=== PATIENT | male | born 1965 | race Caucasian/White ===

== ENCOUNTER 2017-09-27 14:19 | Emergency (ER) | payer SELFPAY ==
[2017-09-27 14:40] VITALS: BP 174/83
[2017-09-27] MEDS ORDERED: OXYCODONE-ACETAMINOPHEN 5-325 MG TABLET PO ONE (15:14)
--- NOTE | 2017-09-27 16:37 | ER Document Report ---
ED General - General Chief Complaint: Problem with Urinary Catheter Stated Complaint: CATHETER PROBLEMS/NOT DRAINING Time Seen by Provider: 09/27/17 15:13 Mode of Arrival: Ambulatory Information source: Patient Notes: Patient presents with severe abdominal pain. He states he had a Romero catheter put in yesterday secondary to bladder cancer. He states today the catheter will not drain and he is having severe pain. It is worse with movement and better with rest. It is constant. The pain radiates into his genitalia. It is sharp. TRAVEL OUTSIDE OF THE [place] IN LAST 30 DAYS: No - Related Data Allergies/Adverse Reactions: No Known Allergies Allergy (Verified 11/05/13 09:27) Past Medical History - General Information source: Patient - Social History Smoking Status: Current Some Day Smoker Chew tobacco use (# tins/day): No Frequency of alcohol use: None Drug Abuse: None Family History: Reviewed & Not Pertinent Patient has suicidal ideation: No Patient has homicidal ideation: No - Past Medical History Cardiac Medical History: Denies: Hx Coronary Artery Disease, Hx Heart Attack, Hx Hypertension Pulmonary Medical History: Denies: Hx Asthma, Hx Bronchitis, Hx COPD, Hx Pneumonia Neurological Medical History: Denies: Hx Cerebrovascular Accident Renal/ Medical History: Denies: Hx Peritoneal Dialysis Musculoskeltal Medical History: Denies Hx Arthritis - Immunizations Hx Diphtheria, Pertussis, Tetanus Vaccination: No Review of Systems - Review of Systems Constitutional: denies: Chills, Fever Cardiovascular: denies: Chest pain, Palpitations Respiratory: denies: Cough, Short of breath Gastrointestinal: Abdominal pain, Nausea Physical Exam - Vital signs Vitals: Temp Pulse Resp BP Pulse Ox 98.3 F 100 20 174/83 H 97 09/27/17 14:36 09/27/17 14:36 09/27/17 14:36 09/27/17 14:36 09/27/17 14:36 Interpretation: Hypertensive - General General appearance: Appears well, Alert - HEENT Head: Normocephalic, Atraumatic Eyes: Normal Pupils: PERRL - Respiratory Respiratory status: No respiratory distress Chest status: Nontender Breath sounds: Normal Chest palpation: Normal - Cardiovascular Rhythm: Regular Heart sounds: Normal auscultation Murmur: No - Abdominal Inspection: Normal Distension: No distension Bowel sounds: Normal Tenderness: Nontender Organomegaly: No organomegaly - Genitourinary Inspection: Blood at meatus, Other - There is a Romero catheter in place with some blood at the meatus. - Back Back: Normal, Nontender - Extremities General upper extremity: Normal inspection, Nontender, Normal color, Normal ROM , Normal temperature General lower extremity: Normal inspection, Nontender, Normal color, Normal ROM , Normal temperature, Normal weight bearing. No: Aj's sign - Neurological Neuro grossly intact: Yes Cognition: Normal Orientation: AAOx4 [place] Coma Scale Eye Opening: Spontaneous [place] Coma Scale Verbal: Oriented [place] Coma Scale Motor: Obeys Commands [place] Coma Scale Total: 15 Speech: Normal Motor strength normal: LUE, RUE, LLE, RLE Sensory: Normal - Psychological Associated symptoms: Normal affect, Normal mood - Skin Skin Temperature: Warm Skin Moisture: Dry Skin Color: Normal Course - Re-evaluation Re-evalutation: 09/27/17 16:35 Patient had his Romero catheter changed approximately 1000 cc of blood-tinged fluid have drained. He states he feels significantly better. - Vital Signs Vital signs: Temp Pulse Resp BP Pulse Ox 98.3 F 100 20 174/83 H 97 09/27/17 14:36 09/27/17 14:36 09/27/17 14:36 09/27/17 14:36 09/27/17 14:36 Discharge - Discharge Clinical Impression: Obstruction of indwelling urinary catheter Qualifiers: Encounter type: initial encounter Qualified Code(s): T83.091A - Other mechanical complication of indwelling urethral catheter, initial encounter Condition: Stable Disposition: HOME, SELF-CARE Additional Instructions: Your blood pressure is elevated. Please have this rechecked within 1 week by your doctor. Please call your urologist as soon as possible to discuss management of your Romero catheter. Forms: Elevated Blood Pressure
== END 2017-09-27 17:18 | disposition home or self-care (01) ==
LOC: ER 14:19
DX: T83.098A Other mechanical complication of other urinary catheter, initial encounter (principal); Y84.6 Urinary catheterization as the cause of abnormal reaction of the patient, or of later complication, without mention of misadventure at the time of the procedure; C67.9 Malignant neoplasm of bladder, unspecified; F17.200 Nicotine dependence, unspecified, uncomplicated; R10.9 Unspecified abdominal pain; R11.0 Nausea
CPT/HCPCS: 99283

== ENCOUNTER 2017-09-28 19:57 | Emergency (ER) | payer SELFPAY ==
--- NOTE | 2017-09-28 20:34 | ER Document Report ---
ED Medical Screen (RME) - General Chief Complaint: Problem with Urinary Catheter Stated Complaint: CATHETER PROBLEMS Time Seen by Provider: 09/28/17 20:20 Mode of Arrival: Wheelchair Information source: Patient, Relative TRAVEL OUTSIDE OF THE [place] IN LAST 30 DAYS: No - HPI Patient complains to provider of: YORK CATHETER NOT DRAINING, LEAKING Onset: This morning Onset/Duration: Sudden Context: Patient apparently had an indwelling [place] catheter placed by urologist 2 days ago. This catheter ceased working yesterday and patient came to this emergency department last night and catheter was changed and irrigated. Function improved until midday today when the new catheter ceased to drain properly. Again, patient complains of urinary leakage around catheter and increased pain in the bladder area. Quality of pain: Pressure Severity: Moderate Associated Symptoms: Nausea. denies: Vomiting Exacerbated by: Movement Relieved by: Denies Similar symptoms previously: Yes - SEE ABOVE Recently seen / treated by doctor: Yes - SEE ABOVE - Related Data Allergies/Adverse Reactions: No Known Allergies Allergy (Verified 09/28/17 20:04) Past Medical History - General Information source: Patient, Relative - Past Medical History Cardiac Medical History: Denies: Hx Coronary Artery Disease, Hx Heart Attack, Hx Hypertension Pulmonary Medical History: Denies: Hx Asthma, Hx Bronchitis, Hx COPD, Hx Pneumonia Neurological Medical History: Denies: Hx Cerebrovascular Accident Renal/ Medical History: Reports: Other - BLADDER Ca. Denies: Hx Peritoneal Dialysis Malignancy Medical History: Reports Other - BLADDER Ca GI Medical History: Reports: None Musculoskeltal Medical History: Denies Hx Arthritis - Immunizations Hx Diphtheria, Pertussis, Tetanus Vaccination: No Review of Systems - Review of Systems Constitutional: denies: Chills, Fever Genitourinary: See HPI Physical Exam - Vital signs Vitals: Temp Pulse Resp BP Pulse Ox 98.5 F 110 H 20 177/99 H 94 09/28/17 20:13 09/28/17 20:13 09/28/17 20:13 09/28/17 20:13 09/28/17 20:13 Interpretation: Hypertensive, Tachycardic. No: Tachypneic, Febrile - General General appearance: Alert, Anxious In distress: Mild - HEENT Head: Normocephalic Eyes: Normal Conjunctiva: Normal - Abdominal Inspection: Normal - Genitourinary Notes: YORK CATH W/ MINIMAL URINE, CLEAR BUT BLOOD-TINGED Course - Vital Signs Vital signs: Temp Pulse Resp BP Pulse Ox 98.5 F 110 H 20 177/99 H 94 09/28/17 20:13 09/28/17 20:13 09/28/17 20:13 09/28/17 20:13 09/28/17 20:13
[2017-09-28] MEDS ORDERED: HYDROMORPHONE HCL INJ/PF 2 MG/ML AMPULE IV ONE ×2 (20:36→22:08)
[2017-09-28] MEDS ORDERED: ONDANSETRON HCL INJ/PF 4 MG/2 ML SDV IV ONE (20:36)
[2017-09-28 21:14] LABS: APPEARANCE,URINE CLOUDY; BILIRUBIN,URINE NEGATIVE (NEGATIVE); GLUCOSE, URINE NEGATIVE (NEGATIVE); KETONES,URINE NEGATIVE (NEGATIVE); LEUKOCYTE ESTERASE,URINE MODERATE (NEGATIVE); NITRITE,URINE NEGATIVE (NEGATIVE); PROTEIN,URINE >=500 mg/dL (NEGATIVE); URINE SPECIFIC GRAVITY 1.011; UROBILINOGEN,URINE NEGATIVE mg/dL (<2.0)
--- NOTE | 2017-09-28 22:42 | ER Document Report ---
ED General - General Chief Complaint: Problem with Urinary Catheter Stated Complaint: CATHETER PROBLEMS Time Seen by Provider: 09/28/17 20:20 Mode of Arrival: Wheelchair Information source: Patient Notes: 52 yr old amle hx of carcinoma of the bladder presents with complaints of difficulty urinating with the gee catheter in place. Pt denies any fevers or chills. pt notes that gee was placed 2 days ago at [facility], yesterday had it removed and replaced and today he had large clots and difficulty urinating. pt denies any fevers or chills. TRAVEL OUTSIDE OF THE [place] IN LAST 30 DAYS: No - HPI Onset: Other Onset/Duration: Persistent Quality of pain: Cramping Severity: Mild Pain Level: 1 Associated symptoms: Other Exacerbated by: Denies Relieved by: Denies Similar symptoms previously: No Recently seen / treated by doctor: No - Related Data Allergies/Adverse Reactions: No Known Allergies Allergy (Verified 09/28/17 20:04) Past Medical History - General Information source: Patient, Relative - Social History Smoking Status: Never Smoker Cigarette use (# per day): No Chew tobacco use (# tins/day): No Smoking Education Provided: No Frequency of alcohol use: None Drug Abuse: None Family History: Reviewed & Not Pertinent Patient has suicidal ideation: No Patient has homicidal ideation: No - Past Medical History Cardiac Medical History: Denies: Hx Coronary Artery Disease, Hx Heart Attack, Hx Hypertension Pulmonary Medical History: Denies: Hx Asthma, Hx Bronchitis, Hx COPD, Hx Pneumonia Neurological Medical History: Denies: Hx Cerebrovascular Accident Renal/ Medical History: Reports: Other - BLADDER Ca. Denies: Hx Peritoneal Dialysis Malignancy Medical History: Reports Other - BLADDER Ca GI Medical History: Reports: None Musculoskeltal Medical History: Denies Hx Arthritis - Immunizations Hx Diphtheria, Pertussis, Tetanus Vaccination: No Review of Systems - Review of Systems Notes: REVIEW OF SYSTEMS: CONSTITUTIONAL : Denies fever, chills, or sweats. Denies recent illness. EENT: Denies eye, ear, throat, or mouth pain or symptoms. Denies nasal or sinus congestion or discharge. Denies throat, tongue, or mouth swelling or difficulty swallowing. CARDIOVASCULAR: Denies chest pain. Denies palpitations or racing or irregular heart beat. Denies ankle edema. RESPIRATORY: Denies cough, cold, or chest congestion. Denies shortness of breath, difficulty breathing, or wheezing. GASTROINTESTINAL: Denies abdominal pain or distention. Denies nausea, vomiting , or diarrhea. Denies blood in vomitus, stools, or per rectum. Denies black, tarry stools. Denies constipation. GENITOURINARY: admits to difficulty urinating , blood in urine MUSCULOSKELETAL: Denies back or neck pain or stiffness. Denies joint pain or swelling. SKIN: Denies rash, lesions or sores. HEMATOLOGIC : Denies easy bruising or bleeding. LYMPHATIC: Denies swollen, enlarged glands. NEUROLOGICAL: Denies confusion or altered mental status. Denies passing out or loss of consciousness. Denies dizziness or lightheadedness. Denies headache. Denies weakness or paralysis or loss of use of either side. Denies problems with gait or speech. Denies sensory loss, numbness, or tingling. Denies seizures. PSYCHIATRIC: Denies anxiety or stress. Denies depression, suicidal ideation, or homicidal ideation. ALL OTHER SYSTEMS REVIEWED AND NEGATIVE. Dictation was performed using [employer] voice recognition software PHYSICAL EXAMINATION: GENERAL: Well-appearing, well-nourished and in no acute distress. HEAD: Atraumatic, normocephalic. EYES: Pupils equal round and reactive to light, extraocular movements intact, sclera anicteric, conjunctiva are normal. ENT: Nares patent, oropharynx clear without exudates. Moist mucous membranes. NECK: Normal range of motion, supple without lymphadenopathy LUNGS: Breath sounds clear to auscultation bilaterally and equal. No wheezes rales or rhonchi. HEART: Regular rate and rhythm without murmurs ABDOMEN: Soft, tenderness in the suprapubic region Musculoskeletal: Normal range of motion, no pitting or edema. No cyanosis. NEUROLOGICAL: Cranial nerves grossly intact. Normal speech, normal gait. Normal sensory, motor exams PSYCH: Normal mood, normal affect. SKIN: Warm, Dry, normal turgor, no rashes or lesions noted. Physical Exam - Vital signs Vitals: Temp Pulse Resp BP Pulse Ox 98.5 F 110 H 20 177/99 H 94 09/28/17 20:13 09/28/17 20:13 09/28/17 20:13 09/28/17 20:13 09/28/17 20:13 Course - Re-evaluation Re-evalutation: 09/29/17 02:01 On arrival patient is noted to have an indwelling Gee catheter, he is alert oriented but having some suprapubic pain, he is having some leaking around the Gee itself, a 22 [place] Gee catheter was placed and large clots were noted at home and here, we attempted to flush the Gee was unsuccessful in doing so, continuous bladder irrigation was ordered and the patient did have quite a bit of clots removed, however the patient wanted to go home did not wish to stay or be transferred, I discussed the risks and benefits and patient are insistent that they would follow-up with the urologist in the morning, even though I was not happy with them leaving AMA I was willing to let them do so since there were alert and oriented and we discussed discharge her return precautions however on the blood work it does appear the patient is in severe renal failure, his creatinine is noted to be 11.4 today and it is noted in previous labs that it was only 3.8 just 10 days ago. I did discuss this with the patient and insisted that he he please be transferred, patient is agreeable to this, [facility] was p[facility] for the transfer 09/29/17 02:35 Pt was accepted on behalf of Dr Hernandez - Vital Signs Vital signs: Temp Pulse Resp BP Pulse Ox 98.5 F 110 H 20 177/99 H 94 09/28/17 20:13 09/28/17 20:13 09/28/17 20:13 09/28/17 20:13 09/28/17 20:13 - Laboratory Result Diagrams: 09/28/17 20:50 09/28/17 20:50 Laboratory results interpreted by me: 09/28/17 09/28/17 09/28/17 20:50 20:50 20:50 WBC 15.4 H Absolute Neutrophils 11.6 H Sodium 147.4 H Potassium 3.5 L Chloride 109 H Carbon Dioxide 18 L Anion Gap 20 H BUN 97 H Creatinine 11.42 H Est GFR ( Amer) 6 L Est GFR (Non-Af Amer) 5 L Glucose 157 H Direct Bilirubin 0.6 H AST 14 L Urine Protein >=500 H Urine Blood LARGE H Ur Leukocyte Esterase MODERATE H Discharge - Discharge Clinical Impression: Bladder cancer Qualifiers: Bladder location: unspecified site Qualified Code(s): C67.9 - Malignant neoplasm of bladder, unspecified Hematuria Qualifiers: Hematuria type: unspecified type Qualified Code(s): R31.9 - Hematuria, unspecified Acute renal failure (ARF) Qualifiers: Acute renal failure type: unspecified Qualified Code(s): N17.9 - Acute kidney failure, unspecified Obstruction of indwelling urinary catheter Qualifiers: Encounter type: subsequent encounter Qualified Code(s): T83.091D - Other mechanical complication of indwelling urethral catheter, subsequent encounter UTI (urinary tract infection) Qualifiers: Urinary tract infection type: acute cystitis Hematuria presence: with hematuria Qualified Code(s): N30.01 - Acute cystitis with hematuria Condition: Serious Disposition: [facility]
[2017-09-28] MEDS ORDERED: LIDOCAINE 2% URO-JET 5 ML KIT MM ONE (23:06)
[2017-09-29] MEDS ORDERED: CIPROFLOXACIN HCL 500 MG TABLET PO ONE (00:04)
[2017-09-29 00:18] LABS: ABSOLUTE BASOPHILS # (AUTO) 0.1 10^3/uL (0.0-0.2); ABSOLUTE EOSINOPHILS # (AUTO) 0.4 10^3/uL (0.0-0.6); ABSOLUTE LYMPHOCYTES (AUTO) 2.1 10^3/uL (0.5-4.7); ABSOLUTE MONOCYTES (AUTO) 1.2 10^3/uL (0.1-1.4); ABSOLUTE NEUT (AUTO) 11.6 10^3/uL (1.7-8.2); BASOPHILS % (AUTO) 0.8 % (0-2); EOSINOPHILS % (AUTO) 2.9 % (0-6); HEMOGLOBIN 14.4 g/dL (13.5-17.0); HGB HCT DIFFERENCE 1.2; LYMPHOCYTES % (AUTO) 13.5 % (13-45); MEAN CORPUSCULAR HGB CONC 34.3 g/dL (32.0-36.0); MEAN CORPUSCULAR VOLUME 85 fl (80-97); MONOCYTES % (AUTO) 7.9 % (3-13); RED BLOOD COUNT 4.97 10^6/uL (4.35-5.55); RED CELL DISTRIBUTION WIDTH 13.9 % (11.5-14.0); SEGMENTED NEUTROPHILS % (AUTO) 74.9 % (42-78); WHITE BLOOD COUNT 15.4 10^3/uL (4.0-10.5)
[2017-09-29 00:22] LABS: ALANINE AMINOTRANSFERASE 26 U/L (21-72); ALBUMIN 3.9 g/dL (3.5-5.0); ALKALINE PHOSPHATASE 82 U/L (38-126); ASPARTATE AMINO TRANSFERASE 14 U/L (17-59); BILIRUBIN,DIRECT 0.6 mg/dL (0.0-0.4); BILIRUBIN,TOTAL 0.6 mg/dL (0.2-1.3); BLOOD UREA NITROGEN 97 mg/dL (7-20); CARBON DIOXIDE 18 mmol/L (22-30); CREATININE RESULT 11.42 mg/dL (0.52-1.25); GLUCOSE 157 mg/dL (75-110); POTASSIUM 3.5 mmol/L (3.6-5.0); TOTAL PROTEIN 6.9 g/dL (6.3-8.2)
[2017-09-29 00:29] LABS: CHLORIDE 109 mmol/L (98-107); SODIUM 147.4 mmol/L (137-145)
[2017-09-29 00:33] LABS: ANION GAP 20 (5-19)
[2017-09-29] MEDS ORDERED: HYDROMORPHONE HCL INJ/PF 2 MG/ML AMPULE IV ONE (01:03)
[2017-09-29] MEDS ORDERED: DIAZEPAM INJ 10 MG/2 ML DISP.SYRIN IV ONE (02:13)
[2017-09-29] MEDS: NORMAL SALINE 1000 ML 1,000 ML IV PRN ×2 (02:30→02:31)
--- NOTE | 2017-09-29 06:01 | RADIOLOGY REPORT (SQ) ---
EXAM DESCRIPTION: U/S RETROPERITON (RENAL/AORTA) COMPLETED DATE/TIME: 09/29/2017 5:47 am REASON FOR STUDY: acute renal failure . Patient has continuous bladder irrigation. Recently diagno sed with bladder cancer in June 2017. COMPARISON: None. TECHNIQUE: Dynamic and static grayscale images acquired of the kidneys and bladder and recorded on P ACS. Additional selected color Doppler images recorded. LIMITATIONS: Portable technique. FINDINGS: RIGHT KIDNEY: Measures 15.4 x 7.4 x 7.3 cm Normal echogenicity. Moderate hydronephrosis w ith the dilated renal pelvis measuring 2.2 cm. No calcifications. LEFT KIDNEY: Measures 16.5 x 7.4 x 8.5 cm. Normal echogenicity. Moderate hydronephrosis with the di lated renal pelvis measuring 2.7 cm. No calcifications. BLADDER: The urinary bladder is partially distended with diffuse wall thickening. Heterogeneous mass with irregular border and internal vascularity at the urinary bladder measuring 9.1 x 8.9 x 6.7 cm. IMPRESSION: Enlarged kidneys with moderate bilateral hydronephrosis. Urinary bladder mass, may represent patient's known malignancy. TECHNICAL DOCUMENTATION: JOB ID: [id number] [employer]- All Rights Reserved
[2017-09-29 08:06] VITALS: BP 122/81
== END 2017-09-29 08:33 | disposition short-term general hospital (02) ==
LOC: ER 19:57
DX: T83.091D Other mechanical complication of indwelling urethral catheter, subsequent encounter (principal); C67.9 Malignant neoplasm of bladder, unspecified; N30.01 Acute cystitis with hematuria; N17.9 Acute kidney failure, unspecified
CPT/HCPCS: 96376; 99285; 96361; 51702; 96374; 96375; 36415; 87086; 85025; 87088; 80053; 81001; 87186; 83605; 76770; J3360; J1170 ×2; J2405; J7030; J3490

== ENCOUNTER → 2017-10-03 | Outpatient (CLI) | payer BC ==
--- NOTE | 2017-10-04 08:38 | RADIOLOGY REPORT (SQ) ---
EXAM DESCRIPTION: PET CT SKULL/THIGH COMPLETED DATE/TIME: 10/03/2017 8:33 pm REASON FOR STUDY: MALIGNANT NEOPLASM OF BLADDER, UNSPECIFIED C67.9 MALIGNANT NEOPLASM OF BLADDER, U NSPECIFIED COMPARISON: None. RADIONUCLIDE AND DOSE: 10.0 mCi F18 FDG The route of agent administration: Intravenous FASTING BLOOD SUGAR: 113 mg/dl CONTRAST TYPE AND DOSE: No CT contrast given. TECHNIQUE: Blood glucose level was verified. Above dose of FDG was injected intravenously. 2-D seg mented attenuation correction images were obtained from the base of the skull to the midthighs. Nonc ontrast CT images were obtained for attenuation correction and fusion with emission images. CT image s were performed without oral or intravenous contrast and are not sensitive for parenchymal lesions. A series of overlapping emission PET images were obtained. Images reviewed and manipulated at [facility] work station by the radiologist. Images stored on PACS. LIMITATIONS: None. FINDINGS: HEAD AND NECK: No areas of abnormal metabolic activity in the soft tissues of the head and neck. CHEST: No areas of abnormal metabolic activity in the chest. ABDOMEN AND PELVIS: Irregular indistinct soft tissue mass in the bladder. Heterogenous nodularity wi th increased metabolic activity. Areas of greatest activity with mean SUV value 5.55 and maximum kristal ue 6.03. Dimensions of the mass are difficult to determine due to lack of intravenous contrast and l ack of contrast within the bladder. Transverse diameter estimated at 8 cm. No other areas of abnorm al metabolic activity in the abdomen or pelvis. Expected physiologic activity is present in the jazz tourinary system and bowel. PROXIMAL LOWER EXTREMITIES: No areas of abnormal metabolic activity in the soft tissues of the lower extremities. BONES: No abnormal metabolic activity in the visualized skeleton. ADDITIONAL CT FINDINGS: Bilateral nephrostomy tubes. No significant hydronephrosis. Bilateral adren al masses, on the right measuring 12 mm and on the left measuring 18 mm. No abnormal metabolic activ ity associated with the adrenal masses. No additional significant findings on the noncontrast CT daniella ges. OTHER: No other significant findings. IMPRESSION: 1. IRREGULAR INDISTINCT SOFT TISSUE MASS IN THE BLADDER SECONDARY TO THE PATIENT'S KNOWN MALIGNANCY. UNABLE TO ACCURATELY DETERMINE THE DIMENSIONS OF THE MASS DUE TO LACK OF CONTRAST. AREAS OF ABNORMA L INCREASED METABOLIC ACTIVITY DESCRIBED ABOVE. 2. BILATERAL ADRENAL NODULES WITH NO SIGNIFICANT INCREASED METABOLIC ACTIVITY. 3. THE REMAINDER OF THE PET STUDY IS OTHERWISE UNREMARKABLE. NO OTHER AREAS OF ABNORMAL ACTIVITY. T HERE ARE BILATERAL NEPHROSTOMY TUBES. TECHNICAL DOCUMENTATION: JOB ID: [id number] [employer]- All Rights Reserved
== END ==
LOC: RAD 17:08
PROVIDERS: ATTEND Internal Medicine Hematology & Oncology
DX: C67.9 Malignant neoplasm of bladder, unspecified (principal)
CPT/HCPCS: 78815; A9552

== ENCOUNTER 2018-07-05 08:56 | Emergency (ER) | payer BC, MEDICAID ==
[2018-07-05] MEDS ORDERED: NORMAL SALINE 1000 ML 1,000 ML IV ONE (10:36)
--- NOTE | 2018-07-05 10:38 | ER Document Report ---
ED Medical Screen (RME) - General Chief Complaint: Diarrhea Stated Complaint: DIARRHEA Time Seen by Provider: 07/05/18 10:34 Notes: Patient says he is having loose stools that are "white, clear, and foam" for the past 2-3 days. He was initially constipated for 3 or 4 days and then took some prune juice and milk of magnesia and started having these stools about 2 or 3 days ago. He is also vomited some. Has not seen any blood in the vomitus or his stools. Has generalized abdominal pain. Patient had surgery in October of this year for a bladder cancer at [facility]. TRAVEL OUTSIDE OF THE [place] IN LAST 30 DAYS: No - Related Data Allergies/Adverse Reactions: No Known Allergies Allergy (Verified 09/28/17 20:04) Past Medical History - Social History Chew tobacco use (# tins/day): No Frequency of alcohol use: None Drug Abuse: None - Past Medical History Cardiac Medical History: Denies: Hx Coronary Artery Disease, Hx Heart Attack, Hx Hypertension Pulmonary Medical History: Denies: Hx Asthma, Hx Bronchitis, Hx COPD, Hx Pneumonia Neurological Medical History: Denies: Hx Cerebrovascular Accident Renal/ Medical History: Denies: Hx Peritoneal Dialysis Musculoskeltal Medical History: Denies Hx Arthritis - Immunizations Hx Diphtheria, Pertussis, Tetanus Vaccination: No Physical Exam - Vital signs Vitals: Temp Pulse Resp BP Pulse Ox 97.9 F 101 H 18 117/78 99 07/05/18 09:11 07/05/18 09:11 07/05/18 09:11 07/05/18 09:11 07/05/18 09:11 Course - Vital Signs Vital signs: Temp Pulse Resp BP Pulse Ox 97.9 F 101 H 20 117/78 99 07/05/18 09:11 07/05/18 09:11 07/05/18 10:32 07/05/18 09:11 07/05/18 09:11 Doctor's Discharge - Discharge Referrals: FAM SINGH MD [Primary Care Provider] - Follow up as needed
[2018-07-05] MEDS ORDERED: MORPHINE SULFATE 10 MG/ML INJ IV ONE (11:59)
--- NOTE | 2018-07-05 12:00 | ER Document Report ---
ED GI/ - General Chief Complaint: Diarrhea Stated Complaint: DIARRHEA Time Seen by Provider: 07/05/18 10:34 Mode of Arrival: Ambulatory Information source: Patient Notes: Patient presents complaining of loose white stools for the past 3 days. Patient denies any blood in the stools. Patient denies any recent antibiotic use. Patient complains of some left flank and left lower quadrant abdominal pain. Patient denies any nausea vomiting or fever. TRAVEL OUTSIDE OF THE [place] IN LAST 30 DAYS: No - HPI Patient complains to provider of: Abdominal pain, Flank pain Onset: Other - 3 days Timing/Duration: Gradual Quality of pain: Achy Pain Level: 2 Location: LLQ, Left flank Associated symptoms: Diarrhea. 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 Lives with: Spouse/Significant other Family History: Reviewed & Not Pertinent Patient has suicidal ideation: No Patient has homicidal ideation: No - Past Medical History Cardiac Medical History: Denies: Hx Coronary Artery Disease, Hx Heart Attack, Hx Hypertension Pulmonary Medical History: Denies: Hx Asthma, Hx Bronchitis, Hx COPD, Hx Pneumonia Neurological Medical History: Denies: Hx Cerebrovascular Accident Renal/ Medical History: Denies: Hx Peritoneal Dialysis Malignancy Medical History: Reports Other - Bladder cancer Musculoskeletal Medical History: Denies Hx Arthritis, Reports Other - Back pain Past Surgical History: Reports: Hx Urostomy, Other - Bladder surgery - Immunizations Hx Diphtheria, Pertussis, Tetanus Vaccination: No Review of Systems - Review of Systems Constitutional: No symptoms reported. denies: Fever, Recent illness EENT: No symptoms reported Cardiovascular: No symptoms reported. denies: Chest pain Respiratory: No symptoms reported. denies: Cough, Short of breath Gastrointestinal: Abdominal pain, Diarrhea. denies: Nausea, Vomiting, Black stools, Rectal bleeding Genitourinary: No symptoms reported. denies: Dysuria, Flank pain Male Genitourinary: No symptoms reported Musculoskeletal: Back pain Skin: No symptoms reported Hematologic/Lymphatic: No symptoms reported Neurological/Psychological: No symptoms reported Physical Exam - Vital signs Vitals: Temp Pulse Resp BP Pulse Ox 97.9 F 101 H 18 117/78 99 07/05/18 09:10 07/05/18 09:10 07/05/18 09:10 07/05/18 09:10 07/05/18 09:10 - General General appearance: Appears well, Alert In distress: None - HEENT Head: Normocephalic, Atraumatic Eyes: Normal Conjunctiva: Normal Nasal: Normal Mouth/Lips: Normal Mucous membranes: Normal Neck: Normal, Supple - Respiratory Respiratory status: No respiratory distress Chest status: Nontender Breath sounds: Normal. No: Rales, Rhonchi, Stridor, Wheezing Chest palpation: Normal - Cardiovascular Rhythm: Regular Heart sounds: S1 appreciated, S2 appreciated Murmur: No - Abdominal Inspection: Obese Distension: No distension Bowel sounds: Normal Tenderness: Nontender Organomegaly: No organomegaly - Back Back: CVA tenderness - left - Extremities General upper extremity: Normal inspection, Normal ROM General lower extremity: Normal inspection, Normal ROM - Neurological Neuro grossly intact: Yes Cognition: Normal [place] Coma Scale Eye Opening: Spontaneous [place] Coma Scale Verbal: Oriented [place] Coma Scale Motor: Obeys Commands [place] Coma Scale Total: 15 - Psychological Associated symptoms: Normal affect, Normal mood - Skin Skin Temperature: Warm Skin Moisture: Dry Skin Color: Normal Course - Re-evaluation Re-evalutation: 07/05/18 15:[address] Medel at [facility] who is on-call for urology. Discussed patient' s labs, vital signs as well as CT report findings. Recommends obtaining a urine culture by catheterizing his urostomy site. Also recommends having patient follow up with the office. States that the office will be calling patient to arrange a follow-up appointment. Pt advised of plan of care. Consult with discharge planning made given pt's concerns over finances. Patient is hemodynamically stable. Patient's pain symptoms are able to be managed. Patient advised of concern about metastatic cancer and need for timely follow-up with his urologist at [facility]. Discussed worsening symptoms that patient should return immediately for. Patient verbalized understanding and is agreeable plan of care. - Vital Signs Vital signs: Temp Pulse Resp BP Pulse Ox 97.9 F 91 16 129/74 H 94 07/05/18 09:11 07/05/18 16:28 07/05/18 16:28 07/05/18 16:28 07/05/18 16:28 - Laboratory Result Diagrams: 07/05/18 11:49 07/05/18 11:49 Laboratory results interpreted by me: 07/05/18 07/05/18 07/05/18 11:49 11:49 11:49 WBC 11.7 H Absolute Neutrophils 8.3 H Sodium 145.1 H Chloride 109 H Glucose 121 H ALT 15 L Creatine Kinase 37 L Urine Protein 100 H Urine Blood SMALL H Ur Leukocyte Esterase LARGE H Labs- Entire Visit 07/05/18 07/05/18 07/05/18 11:49 11:49 11:49 WBC 11.7 H RBC 5.45 Hgb 15.9 Hct 47.9 MCV 88 MCH 29.2 MCHC 33.2 RDW 13.8 Plt Count 307 Seg Neutrophils % 71.0 Lymphocytes % 16.2 Monocytes % 8.7 Eosinophils % 3.1 Basophils % 1.0 Absolute Neutrophils 8.3 H Absolute Lymphocytes 1.9 Absolute Monocytes 1.0 Absolute Eosinophils 0.4 Absolute Basophils 0.1 Sodium 145.1 H Potassium 4.3 Chloride 109 H Carbon Dioxide 28 Anion Gap 8 BUN 14 Creatinine 0.84 Est GFR ( Amer) > 60 Est GFR (Non-Af Amer) > 60 Glucose 121 H Calcium 9.5 Total Bilirubin 0.6 Direct Bilirubin 0.3 Neonat Total Bilirubin Not Reportable Neonat Direct Bilirubin Not Reportable Neonat Indirect Bili Not Reportable AST 17 ALT 15 L Alkaline Phosphatase 81 Creatine Kinase 37 L Total Protein 6.9 Albumin 4.1 Lipase 80.3 Urine Color YELLOW Urine Appearance SLIGHTLY-CLOUDY Urine pH 7.0 Ur Specific [place] 1.014 Urine Protein 100 H Urine Glucose (UA) NEGATIVE Urine Ketones NEGATIVE Urine Blood SMALL H Urine Nitrite NEGATIVE Urine Bilirubin NEGATIVE Urine Urobilinogen NEGATIVE Ur Leukocyte Esterase LARGE H Urine WBC (Auto) 44 Urine RBC (Auto) 15 Urine Bacteria (Auto) TRACE Squamous Epi Cells Auto <1 U Non-Squamous Epis Auto 2 Urine Mucus (Auto) RARE Urine Ascorbic Acid NEGATIVE C. difficile Tox (PCR) 07/05/18 13:47 WBC RBC Hgb Hct MCV MCH MCHC RDW Plt Count Seg Neutrophils % Lymphocytes % Monocytes % Eosinophils % Basophils % Absolute Neutrophils Absolute Lymphocytes Absolute Monocytes Absolute Eosinophils Absolute Basophils Sodium Potassium Chloride Carbon Dioxide Anion Gap BUN Creatinine Est GFR ( Amer) Est GFR (Non-Af Amer) Glucose Calcium Total Bilirubin Direct Bilirubin Neonat Total Bilirubin Neonat Direct Bilirubin Neonat Indirect Bili AST ALT Alkaline Phosphatase Creatine Kinase Total Protein Albumin Lipase Urine Color Urine Appearance Urine pH Ur Specific [place] Urine Protein Urine Glucose (UA) Urine Ketones Urine Blood Urine Nitrite Urine Bilirubin Urine Urobilinogen Ur Leukocyte Esterase Urine WBC (Auto) Urine RBC (Auto) Urine Bacteria (Auto) Squamous Epi Cells Auto U Non-Squamous Epis Auto Urine Mucus (Auto) Urine Ascorbic Acid C. difficile Tox (PCR) NEGATIVE - Diagnostic Test Radiology reviewed: Image reviewed, Reports reviewed Discharge - Discharge Clinical Impression: Metastasis from bladder cancer, Pelvic mass Diarrhea Qualifiers: Diarrhea type: unspecified type Qualified Code(s): R19.7 - Diarrhea, unspecified UTI (urinary tract infection) Qualifiers: Urinary tract infection type: site unspecified Hematuria presence: with hematuria Qualified Code(s): N39.0 - Urinary tract infection, site not specified Condition: Stable Disposition: HOME, SELF-CARE Instructions: Cephalexin ([facility]), Diarrhea, Nonspecific ([facility]), Growth or Mass, Pending Workup ([facility]), Urinary Tract Infection ([facility]) Additional Instructions: Return immediately for any new or worsening symptoms Followup with your primary care provider, call tomorrow to make a followup appointment The [facility] urology office will call you to make a follow-up appointment. If you have not heard from them by tomorrow afternoon give them a call to confirm your appointment time. Urine is pending, we will call if you need any different treatment Take the CT disc to the urology appointment. Rk Wells with discharge planning should give you a call. Her office number is [phone], if you have not heard from her by tomorrow afternoon, give her office a call. Prescriptions: Cephalexin Monohydrate [Keflex 500 mg Capsule] 500 mg PO Q6H 7 Days capsule Loperamide HCl [Loperamide] 2 mg PO ASDIR PRN #20 tablet PRN Reason: Forms: Smoking Cessation Education Referrals: FAM SINGH MD [Primary Care Provider] - Follow up as needed
[2018-07-05 12:05] LABS: ABSOLUTE BASOPHILS # (AUTO) 0.1 10^3/uL (0.0-0.2); ABSOLUTE EOSINOPHILS # (AUTO) 0.4 10^3/uL (0.0-0.6); ABSOLUTE LYMPHOCYTES (AUTO) 1.9 10^3/uL (0.5-4.7); ABSOLUTE NEUT (AUTO) 8.3 10^3/uL (1.7-8.2); EOSINOPHILS % (AUTO) 3.1 % (0-6); HEMATOCRIT 47.9 % (37.9-51.0); HEMOGLOBIN 15.9 g/dL (13.5-17.0); LYMPHOCYTES % (AUTO) 16.2 % (13-45); MEAN CORPUSCULAR HEMOGLOBIN 29.2 pg (27.0-33.4); MEAN CORPUSCULAR HGB CONC 33.2 g/dL (32.0-36.0); MEAN CORPUSCULAR VOLUME 88 fl (80-97); MONOCYTES % (AUTO) 8.7 % (3-13); PLATELET COUNT 307 10^3/uL (150-450); RED BLOOD COUNT 5.45 10^6/uL (4.35-5.55); RED CELL DISTRIBUTION WIDTH 13.8 % (11.5-14.0); TOTAL CELLS COUNTED % (AUTO) 100 %; WHITE BLOOD COUNT 11.7 10^3/uL (4.0-10.5)
[2018-07-05 12:24] LABS: ALANINE AMINOTRANSFERASE 15 U/L (21-72); ALBUMIN 4.1 g/dL (3.5-5.0); ALKALINE PHOSPHATASE 81 U/L (38-126); ANION GAP 8 (5-19); ASPARTATE AMINO TRANSFERASE 17 U/L (17-59); BILIRUBIN,DIRECT 0.3 mg/dL (0.0-0.4); BILIRUBIN,TOTAL 0.6 mg/dL (0.2-1.3); BLOOD UREA NITROGEN 14 mg/dL (7-20); CALCIUM 9.5 mg/dL (8.4-10.2); CARBON DIOXIDE 28 mmol/L (22-30); CHLORIDE 109 mmol/L (98-107); CREATINE KINASE 37 U/L (55-170); GLUCOSE 121 mg/dL (75-110); LIPASE 80.3 U/L (23-300); POTASSIUM 4.3 mmol/L (3.6-5.0); SODIUM 145.1 mmol/L (137-145); TOTAL PROTEIN 6.9 g/dL (6.3-8.2)
[2018-07-05 12:34] LABS: APPEARANCE,URINE SLIGHTLY-CLOUDY; BILIRUBIN,URINE NEGATIVE (NEGATIVE); GLUCOSE, URINE NEGATIVE (NEGATIVE); KETONES,URINE NEGATIVE (NEGATIVE); LEUKOCYTE ESTERASE,URINE LARGE (NEGATIVE); NITRITE,URINE NEGATIVE (NEGATIVE); PROTEIN,URINE 100 mg/dL (NEGATIVE); URINE SPECIFIC GRAVITY 1.014; UROBILINOGEN,URINE NEGATIVE mg/dL (<2.0)
[2018-07-05 12:43] LABS: COLOR,URINE YELLOW
--- NOTE | 2018-07-05 13:37 | RADIOLOGY REPORT (SQ) ---
EXAM DESCRIPTION: CT LTD RENAL STONE PROTOCOL ON COMPLETED DATE/TIME: 07/05/2018 1:15 pm REASON FOR STUDY: L flank pain, diarrhea, UTI, hx urostomy COMPARISON: PET-CT 10/03/2017 TECHNIQUE: CT scan of the abdomen and pelvis performed without intravenous or oral contrast. Images reviewed with lung, soft tissue, and bone windows. Reconstructed coronal and sagittal MPR images revi ewed. All images stored on PACS. All CT scanners at this facility use dose modulation, iterative reconstruction, and/or weight based d osing when appropriate to reduce radiation dose to as low as reasonably achievable (ALARA). [facility]: Dose Right [facility]: CareDose [facility]: Dose Right [facility]: Teradose 4D [facility]: Smart Technologies RADIATION DOSE: CT Rad equipment meets quality standard of care and radiation dose reduction techniq ues were employed. CTDIvol: 18.1 mGy. DLP: 1022 mGy-cm.mGy. LIMITATIONS: None. FINDINGS: LOWER CHEST: No significant findings. No nodules or infiltrates. NON-CONTRASTED LIVER, SPLEEN, ADRENALS: Liver and spleen are normal. There is a 27 mm left adrenal n odule that is larger than on the PET-CT. There is also a 12 mm right adrenal nodule. PANCREAS: No masses. No peripancreatic inflammatory changes. GALLBLADDER: No identified stones by CT criteria. No inflammatory changes to suggest cholecystitis. RIGHT KIDNEY AND URETER: No suspicious masses. Assessment limited by lack of IV contrast. No signif icant calcifications. No hydronephrosis or hydroureter. LEFT KIDNEY AND URETER: There is left hydronephrosis. No ureteral stone is appreciated. However, th ere is a large mass that apparently arises in the pelvis and extends up near the midline to the lower abdomen. AORTA AND RETROPERITONEUM: No aneurysm. No retroperitoneal masses or adenopathy. BOWEL AND PERITONEAL CAVITY: An ostomy is present in the right lower quadrant, possible urinary diver katherin. No bowel masses are appreciated. APPENDIX: Not identified. PELVIS, BLADDER, AND ABDOMINAL WALL:There is a large mass arising in the pelvis, likely arising from the bladder. On the sagittal images this measures 180 x 143 mm. This measures 115 mm in transverse diameter. BONES: No significant findings. OTHER: No other significant finding. IMPRESSION: 1. There is what appears to be a large bladder mass with urinary diversion procedure. There is left hydronephrosis. 2. Adrenal nodules are present. The 1 on the left is larger than on the prior study. Possible meta static disease. COMMENT: Quality ID # [id number]: Final reports with documentation of one or more dose reduction techniques (e.g., Automated exposure control, adjustment of the mA and/or kV according to patient size, use of iterative reconstruction technique) TECHNICAL DOCUMENTATION: JOB ID: [id number] [employer]- All Rights Reserved Reading location - IP/workstation name: [email or web address]
[2018-07-05] MEDS ORDERED: CEFTRIAXONE INJ 1000 MG VIAL IM ONE (14:30)
[2018-07-05] MEDS ORDERED: CEFTRIAXONE INJ 1000 MG VIAL IV ONE (15:11)
[2018-07-05 16:33] VITALS: BP 129/74
== END 2018-07-05 16:55 | disposition home or self-care (01) ==
LOC: ER 08:56
DX: R19.7 Diarrhea, unspecified (principal); N39.0 Urinary tract infection, site not specified; F17.200 Nicotine dependence, unspecified, uncomplicated; C79.11 Secondary malignant neoplasm of bladder
CPT/HCPCS: 99284; 96361; 96374; 96375; 36415; 87045; 87086; 87205; 82550; 83690; 85025; 80053; 81001; 87493; 76380; J2270; J0696; J7030

== ENCOUNTER 2018-11-10 16:32 | Emergency (ER) | payer SELFPAY ==
--- NOTE | 2018-11-10 17:54 | ER Document Report ---
ED General - General Mode of Arrival: Ambulatory Information source: Patient TRAVEL OUTSIDE OF THE [place] IN LAST 30 DAYS: No <ARTHUR JOINER - Last Filed: 11/10/18 23:18> <TEVIN KOHLER - Last Filed: 11/11/18 01:04> - General Chief Complaint: Abdominal Pain Stated Complaint: ABDOMINAL PAIN Time Seen by Provider: 11/10/18 16:39 Notes: Patient is a 53 year old male with metastatic bladder cancer (Bladder removal, urostomy) prostate removal presents to the emergency department complaining of a cough, weakness, abdominal pain and vomiting. Patient states he has had a cough, congestion and abdominal pain for 3 weeks. He states today he developed post tussive emesis further described as greenish brown in appearance. He state his abdominal pain is "noticeable" and has unchanged within the last few weeks. He states he is currently prescribed oxycodone and morphine. Patient states his potassium is currently 1.4 and his primary concern is weakness further stating he wants to feel "stronger". He also complains of some diarrhea. He denies recent abdominal bloating, hematemeis, shortness of breath, fevers, or chest pain. Patient states the cancer metastasized to his peritoneum. Patient's last chemotherapy and radiation treatment was on . He states today was going to be his first day of hospice. (ARTHUR JOINER) - Related Data Allergies/Adverse Reactions: No Known Allergies Allergy (Verified 09/28/17 20:04) Past Medical History - General Information source: Patient - Social History Smoking Status: Current Every Day Smoker Frequency of alcohol use: None Family History: Reviewed & Not Pertinent Patient has suicidal ideation: No Patient has homicidal ideation: No Malignancy Medical History: Reports Other - bladder cancer, mets to peritoneum Past Surgical History: Reports: Hx Urostomy, Other - Bladder surgery - Immunizations Hx Diphtheria, Pertussis, Tetanus Vaccination: No <ARTHUR JOINER - Last Filed: 11/10/18 23:18> Review of Systems - Review of Systems Constitutional: See HPI, Weakness EENT: No symptoms reported Cardiovascular: No symptoms reported Respiratory: No symptoms reported Gastrointestinal: See HPI, Diarrhea Genitourinary: No symptoms reported Male Genitourinary: No symptoms reported Musculoskeletal: No symptoms reported Skin: No symptoms reported Hematologic/Lymphatic: No symptoms reported Neurological/Psychological: No symptoms reported -: Yes All other systems reviewed and negative <ARTHUR JOINER - Last Filed: 11/10/18 23:18> Physical Exam <ARTHUR JOINER - Last Filed: 11/10/18 23:18> - Vital signs Vitals: Temp Pulse Resp BP Pulse Ox 97.8 F 92 18 123/75 96 11/10/18 16:47 11/10/18 16:47 11/10/18 16:47 11/10/18 16:47 11/10/18 16:47 - Notes Notes: GENERAL: Alert, interacts well, initally on CPAP brought from home, states he brought it to help him sleep. No acute distress. HEAD: Normocephalic, atraumatic. EYES: Pupils equal, round, and reactive to light. Extraocular movements intact. ENT: Oral mucosa moist, tongue midline. NECK: Full range of motion. Supple. Trachea midline. LUNGS: Clear to auscultation bilaterally, no wheezes, rales, or rhonchi. No respiratory distress. HEART: Muffled. Tachycardic. ABDOMEN: Soft, distended with fluid wave, minimally tender to palpation to the bilateral lower quadrants. Bowel sounds present in all 4 quadrants. Urostomy in LLQ, beefy red stoma, no signs of infection. EXTREMITIES: Moves all 4 extremities spontaneously. No edema, radial and dorsalis pedis pulses 2/4 bilaterally. No cyanosis. NEUROLOGICAL: Alert and oriented x3. Normal speech. PSYCH: Normal affect, normal mood. SKIN: Warm, dry, normal turgor. No rashes or lesions noted. Mildly jaundiced. Spider veins across chest. (ARTHUR JOINER) Course - Laboratory Result Diagrams: 11/10/18 15:55 11/10/18 15:55 <ARTHUR JOINER - Last Filed: 11/10/18 23:18> - Laboratory Result Diagrams: 11/10/18 15:55 11/10/18 15:55 <TEVIN KOHLER - Last Filed: 11/11/18 01:04> - Re-evaluation Re-evalutation: 11/10/18 23:00 CBC shows leukocytosis 22.2, platelets elevated at 458, CMP shows significantly low potassium at 2.0 and a low magnesium at 1.0, calcium is also low at 7.3, LFTs and renal function are normal, lipase is normal. Chest x-ray shows no acute process. 11/10/18 23:04 Discussed extensively with the patient was expectations were for this visit considering he is a metastatic bladder cancer patient who was supposed to start on hospice today. Patient states that he has abdominal pain but this is his chronic abdominal pain and he expects it to worsen. States that he knows that there is no further treatment for his bladder cancer. States that he was told his potassium was one-point something but people have told him that if his potassium improved he would feel better so he would like to have IV potassium. While in the emergency department patient did have several runs of nonsustained V. tach, patient was not symptomatic during these episodes. Patient was given K rider as well as IV magnesium, patient was also given oral potassium which he stated ramesh so he refused to drink any more of the oral potassium. I did discuss with the patient that we could hospitalize him to replete his potassium through the IV and he would likely need to stay overnight for this as his potassium was so low or we could continue with oral repletion at home but the risk of this was that he would go into sustained V. tach and he could from this. Patient states that he would rather go home, would like to try oral replacement and of the potassium. States that he would rather take the pills. Patient will be discharged to home after getting potassium pills here and being given a 5-day prescription for potassium at home. Patient's is in agreement with this plan. I did discuss the case with Dr. Mora, agrees with allowing the patient to make his decisions on intensity of care. Asks patient to call continuing hospice when he gets home and the nurses can come out to finish setting him up for hospice tomorrow morning. (ETVIN KOHLER) - Vital Signs Vital signs: Temp Pulse Resp BP Pulse Ox 97.8 F 92 13 129/72 H 97 11/10/18 16:47 11/10/18 16:47 11/10/18 23:30 11/10/18 23:30 11/10/18 23:30 - Laboratory Laboratory results interpreted by me: 11/10/18 11/10/18 15:55 15:55 WBC 22.3 H Hgb 12.8 L RDW 18.6 H Plt Count 458 H Seg Neuts % (Manual) 90 H Lymphocytes % (Manual) 4 L Abs Neuts (Manual) 20.1 H Potassium 2.0 L* Chloride 91 L Carbon Dioxide 39 H Glucose 213 H Calcium 7.3 L Magnesium 1.0 L* Total Protein 5.8 L Albumin 3.2 L Discharge <ARTHUR JOINER - Last Filed: 11/10/18 23:18> <TEVIN KOHLER - Last Filed: 11/11/18 01:04> - Discharge Clinical Impression: Hypokalemia, Hypomagnesemia Malignant neoplasm of bladder Qualifiers: Bladder location: unspecified site Qualified Code(s): C67.9 - Malignant neoplasm of bladder, unspecified Condition: Fair Disposition: HOME, SELF-CARE Additional Instructions: Your potassium is low. I have prescribed potassium pills to help with this. You have had 2-3 episodes of diarrhea today, if your diarrhea worsens please return to the emergency department as this could make your potassium go lower. The low potassium is causing your heart to have some problems and going into abnormal rhythms. Fixing your potassium should fix these rhythms. We did discuss that you could stay in the hospital while we fixed the potassium but you are also allowed to choose to go home to be comfortable at home. You are choosing to go home. I have discussed this with Dr. Elam the oncologist who is also working with your hospice nurses and she agrees with allowing you to make this choice. Dr. Elam would like you to call the continue with hospice nurses when you get home to let them know that you were discharged home this evening and they will be able to come out and help you as needed starting tomorrow morning. Prescriptions: Potassium Chloride 20 meq PO DAILY #14 tablet.er Referrals: FAM SINGH MD [Primary Care Provider] - Follow up as needed XIAO ELAM MD [ACTIVE STAFF] - Follow up as needed Scribe Attestation: 11/11/18 01:03 I personally performed the services described in the documentation, reviewed and edited the documentation which was dictated to the scribe in my presence, and it accurately records my words and actions. (TEVIN KOHLER) Scribe Documentation - Scribe Written by Maximiliane:: Jass Fernandez, 11/10/2018 18:24 acting as scribe for :: Melinda <ARTHUR JOINER - Last Filed: 11/10/18 23:18>
[2018-11-10 18:30] LABS: HEMOGLOBIN 12.8 g/dL (13.5-17.0); MEAN CORPUSCULAR HEMOGLOBIN 28.6 pg (27.0-33.4); MEAN CORPUSCULAR HGB CONC 32.8 g/dL (32.0-36.0); MEAN CORPUSCULAR VOLUME 87 fl (80-97); PLATELET COUNT 458 10^3/uL (150-450); RED BLOOD COUNT 4.47 10^6/uL (4.35-5.55); RED CELL DISTRIBUTION WIDTH 18.6 % (11.5-14.0); WHITE BLOOD COUNT 22.3 10^3/uL (4.0-10.5)
--- NOTE | 2018-11-10 18:37 | RADIOLOGY REPORT (SQ) ---
EXAM DESCRIPTION: CHEST 2 VIEWS COMPLETED DATE/TIME: 11/10/2018 6:24 pm REASON FOR STUDY: cough x 3 weeks, bladder CA COMPARISON: None. EXAM PARAMETERS: NUMBER OF VIEWS: two views TECHNIQUE: Digital Frontal and Lateral radiographic views of the chest acquired. RADIATION DOSE: NA LIMITATIONS: none FINDINGS: LUNGS AND PLEURA: No opacities, masses or pneumothorax. No pleural effusion. MEDIASTINUM AND HILAR STRUCTURES: No masses or contour abnormalities. HEART AND VASCULAR STRUCTURES: Heart normal size. No evidence for failure. BONES: No acute findings. HARDWARE: None in the chest. OTHER: No other significant finding. IMPRESSION: NO ACUTE RADIOGRAPHIC FINDING IN THE CHEST. TECHNICAL DOCUMENTATION: JOB ID: [id number] [place]-[id number] 2010 [employer]- All Rights Reserved Reading location - IP/workstation name: [email or web address]
[2018-11-10 18:38] LABS: ALANINE AMINOTRANSFERASE 33 U/L (21-72); ALBUMIN 3.2 g/dL (3.5-5.0); ALKALINE PHOSPHATASE 124 U/L (38-126); ASPARTATE AMINO TRANSFERASE 51 U/L (17-59); BILIRUBIN,DIRECT 0.4 mg/dL (0.0-0.4); BILIRUBIN,TOTAL 0.9 mg/dL (0.2-1.3); BLOOD UREA NITROGEN 10 mg/dL (7-20); CALCIUM 7.3 mg/dL (8.4-10.2); CHLORIDE 91 mmol/L (98-107); GLUCOSE 213 mg/dL (75-110); SODIUM 144.1 mmol/L (137-145); TOTAL PROTEIN 5.8 g/dL (6.3-8.2)
[2018-11-10 18:45] LABS: ANION GAP 14 (5-19); CARBON DIOXIDE 39 mmol/L (22-30)
[2018-11-10 18:52] LABS: ABSOLUTE LYMPHOCYTES# (MANUAL) 0.9 10^3/uL (0.5-4.7); ABSOLUTE MONOCYTES # (MANUAL) 1.3 10^3/uL (0.1-1.4); ABSOLUTE NEUTROPHILS# (MANUAL) 20.1 10^3/uL (1.7-8.2); BASOPHILS % (MANUAL) 0 % (0-2); EOSINOPHILS % (MANUAL) 0 % (0-6); LYMPHOCYTES % (MANUAL) 4 % (13-45); MONOCYTES % (MANUAL) 6 % (3-13); SEGMENTED NEUTROPHILS % (MAN) 90 % (42-78); TOTAL CELLS COUNTED 100
[2018-11-10 18:53] LABS: ANISOCYTOSIS 2+; PLATELET COMMENT INCREASED; POIKILOCYTOSIS SLIGHT; TOXIC GRANULATION SLIGHT
[2018-11-10] MEDS ORDERED: POTASSIUM CHLORIDE 20 MEQ/15 ML UDCUP PO ONE (19:45)
[2018-11-10] MEDS ORDERED: MAGNESIUM SULFATE/D5W 1 GM/100 ML RTUPB IV ONE (19:45)
[2018-11-10] MEDS ORDERED: POTASSI CL 20 MEQ/50 ML RIDER 20 MEQ/50 ML RTUPB IV ONE (19:45)
[2018-11-10] MEDS ORDERED: ONDANSETRON HCL INJ/PF 4 MG/2 ML SDV IV ONE (20:08)
[2018-11-10] MEDS ORDERED: POTASSIUM CHLORIDE 10 MEQ CAPSULE.ER PO ONE (23:00)
[2018-11-10] MEDS ORDERED: MAGNESIUM OXIDE 400 MG TABLET PO ONE (23:00)
[2018-11-10] MEDS ORDERED: LOPERAMIDE HCL 2 MG CAPSULE PO ONE (23:38)
[2018-11-11 00:42] VITALS: BP 129/72
== END 2018-11-11 00:05 | disposition home or self-care (01) ==
LOC: ER 16:32
DX: E87.6 Hypokalemia (principal); E83.42 Hypomagnesemia; C67.9 Malignant neoplasm of bladder, unspecified; C78.6 Secondary malignant neoplasm of retroperitoneum and peritoneum; R10.9 Unspecified abdominal pain; R05 Cough; R53.1 Weakness; R11.10 Vomiting, unspecified; R09.81 Nasal congestion; R19.7 Diarrhea, unspecified; R00.0 Tachycardia, unspecified; Z79.899 Other long term (current) drug therapy; F17.200 Nicotine dependence, unspecified, uncomplicated
CPT/HCPCS: 36415; 83690; 83735; 85025; 80053; 71046; J3475; J2405; J3480